=== PATIENT | female | born 1965 | race Caucasian/White ===

== ENCOUNTER 2017-10-22 13:44 | Emergency (ER) | payer OTHER, MEDICAID ==
[2017-10-22 13:57] VITALS: BP 159/81; PULSE 73; RESP 16; TEMP 97.2; O2SAT 97
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
[2017-10-22] MEDS ORDERED: PROMETHAZINE HCL 25 MG/ML INJ ONE (14:30)
[2017-10-22] MEDS ORDERED: PROMETHAZINE HCL 25 MG/ML INJ IM ONE (14:32)
== END 2017-10-22 14:45 | disposition home or self-care (01) ==
LOC: CED 13:44
DX: S16.1XXA Strain of muscle, fascia and tendon at neck level, initial encounter (principal); S39.92XA Unspecified injury of lower back, initial encounter; G43.909 Migraine, unspecified, not intractable, without status migrainosus; Z87.891 Personal history of nicotine dependence; V49.40XA Driver injured in collision with unspecified motor vehicles in traffic accident, initial encounter; Y92.410 Unspecified street and highway as the place of occurrence of the external cause; Y99.8 Other external cause status; Y93.89 Activity, other specified
CPT/HCPCS: J2550

== ENCOUNTER 2017-11-30 12:24 | Emergency (ER) | payer MEDICAID ==
[2017-11-30 12:39] VITALS: BP 114/79; PULSE 58; RESP 16; TEMP 97.3; O2SAT 95
--- NOTE | 2017-11-30 12:49 | EDPHY ---
H & P Time Seen by Provider: 11/30/17 12:28 HPI/ROS: CHIEF COMPLAINT: Right ear pain HISTORY OF PRESENT ILLNESS: 52-year-old female states that 4 weeks ago she had influenza with high fever, body aches, and cough. Symptoms of fever and cough have resolved but she has had ongoing sore throat and pain in her right ear. No vomiting. Has been using ibuprofen with little relief. No discharge from the ear. Patient's daughter is also in the emergency department with a sore throat and ear pain. REVIEW OF SYSTEMS: Aside from elements discussed in the HPI, a comprehensive 10-point review of systems was reviewed and is negative. PAST MEDICAL HISTORY: Anxiety SOCIAL HISTORY: Nonsmoker. VITAL SIGNS: see nurse's notes. GENERAL: Well-developed, well-nourished, in no acute distress. Nontoxic in appearance. Alert, conversant, oriented. HEENT: Pupils equal round reactive to light, no conjunctival injection, no sinus tenderness to percussion. Tympanic membranes are clear bilaterally. Right TM slightly retracted, but no erythema. No discomfort with movement of the pinna. External auditory canal is clear. Oropharynx is clear. No exudates or erythema of the posterior pharynx. Neck is supple, full range of motion. Smoking Status: Former smoker Constitutional: Initial Vital Signs Temperature (C) 36.3 C 11/30/17 12:35 Heart Rate 58 L 11/30/17 12:35 Respiratory Rate 16 11/30/17 12:35 Blood Pressure 114/79 11/30/17 12:35 O2 Sat (%) 95 11/30/17 12:35 O2 Delivery Mode Room Air Allergies/Adverse Reactions: Penicillins Allergy (Verified 11/30/17 12:34) Home Medications: Medication Instructions Recorded Azithromycin [Zithromax] 250 mg PO DAILY #6 tab 11/30/17 Gabapentin 11/30/17 MDM/Departure - [facility] ED Course/Re-evaluation: 52-year-old female with several weeks of ongoing ear pain following influenza ( by the patient's history). Patient has a normal exam, with the exception of slight retraction of the right tympanic membrane. She reports excessive fatigue and significant pain in the ear. She was given a course of azithromycin for possible mycoplasma infection and advised to use decongestants including Flonase nasal spray. Differential Diagnosis: Differential diagnosis for the patient's primary complaint was considered including but not limited to otitis media, otitis externa, foreign body, perforated tympanic membrane. - Depart Disposition: Home, Routine, Self-Care Clinical Impression: Ear pain, right Upper respiratory infection Qualifiers: URI type: unspecified URI Qualified Code(s): J06.9 - Acute upper respiratory infection, unspecified Condition: Good Instructions: Azithromycin (By mouth), Upper Respiratory Infection (ED), Earache (ED), Cold Symptoms (ED) Additional Instructions: You been given a prescription for azithromycin. Please take this as directed. Continue to use Tylenol or ibuprofen as needed for ear pain. Ear pain may be caused by fluid in the inner ear or by a viral infection. This will not clear of without the use of a decongestant. I strongly recommend that you take a decongestant such as Sudafed. I would also recommend Flonase nasal spray on a daily basis while you are taking azithromycin. Please follow up with Dr Shetty, a ENT physician, or with your primary care physician if you're not improving as expected. If you have a sore throat, take Tylenol, or ibuprofen. Throat lozenges, throat sprays, or salt water gargles may also be helpful. Return to emergency department or seek care urgently if you're symptoms are worsening despite the above treatment, if you develop shortness of breath, if you're unable to drink fluids secondary to throat pain or other issues, if you developed, vomiting, diarrhea, or other concerns. Prescriptions: Azithromycin [Zithromax] 250 mg PO DAILY #6 tab Referrals: NONE *PRIMARY CARE P,. [Primary Care Provider] - As per Instructions Varun Shetty MD [Medical Doctor] - As per Instructions
== END 2017-11-30 13:25 | disposition home or self-care (01) ==
LOC: CED 12:24
DX: H92.01 Otalgia, right ear (principal); J06.9 Acute upper respiratory infection, unspecified; Z87.891 Personal history of nicotine dependence

== ENCOUNTER 2019-03-05 22:19 | Emergency (ER) | payer MEDICAID | END 2019-03-05 22:42 | disposition left against medical advice (07) | LOC: CED 22:19 ==